=== PATIENT | female | born 1960 | race Caucasian/White ===

== ENCOUNTER → 2019-07-03 | Outpatient (REF) | payer OTHER ==
[2019-07-08 14:07] LABS: HPV HYBRID CAPTURE II Negative (Negative)
== END ==
LOC: M LAB LCGH 12:01
PROVIDERS: ATTEND Family Medicine
DX: Z12.4 Encounter for screening for malignant neoplasm of cervix (principal)

== ENCOUNTER → 2020-04-23 | Outpatient (CLI) | payer OTHER ==
[~2020-04-23] MED LIST: CETI10CH PO; ESOM0.1C PO; LISI10TA15 PO; MONT10TA4 PO; VENTAER INH; VITA100066 PO
--- NOTE | 2020-04-24 10:43 | REP ---
REASON FOR EXAM: Dyspnea. There are no priors for comparison. The lack of intravenous contrast decreases the sensitivity of the exam. There is no mediastinal or hilar adenopathy. There are no pleural or pericardial effusions. The imaged upper abdomen and imaged osseous structures are within normal limits for the patient's age. Evaluation of the lung zuniga shows mild to moderate hyperexpansion and evidence of biapical pleuroparenchymal scarring. There is a 5 mm sized nodule in the right upper lobe. IMPRESSION: 1. There is a 5 mm sized nodule in the right upper lobe. According to the revised Fleischner Society criteria, this represents a category 3 lesion for which a 6-month followup chest CT is recommended. 2. Evidence of biapical pleuroparenchymal scarring with no priors for comparison. This too, can be re-assessed in a 3-month time. 3. Other findings as described above. Electronically Signed by Ángel Gonsalez DO 04/26/2020 10:54 A
== END ==
LOC: M RAD 13:56
PROVIDERS: ATTEND Physician Assistant
DX: R06.00 Dyspnea, unspecified (principal); R91.1 Solitary pulmonary nodule